=== PATIENT | female | born 1940 | race Caucasian/White ===

== ENCOUNTER 2020-09-14 21:21 | Emergency (ER) | payer OTHER ==
[~2020-09-14] VITALS: Ht 177.8 cm; Wt 61.7 kg
[2020-09-14] MEDS ORDERED: MULTIVITAMINS1 EAC7 PO (21:28)
[2020-09-14] MEDS ORDERED: CARDIZEM SR 60M60 MG PO (21:29)
[2020-09-14] MEDS ORDERED: WARFARIN SODIUM2 MG PO (21:29)
[2020-09-14] MEDS ORDERED: KEPPRA XR500 MG PO (21:29)
[2020-09-14] MEDS ORDERED: NAMENDA 5 MG TAB5 M1 PO (21:30)
[2020-09-14] MEDS ORDERED: FUROSEMIDE 20 M20 MG PO (21:31)
[2020-09-14 22:23] LABS: ABSOLUTE NEUTROPHILS 2.9 thou/uL (1.4-8.2); HEMATOCRIT 43.8 % (37.0-47.0); HEMOGLOBIN 14.7 gm/dL (12.0-15.0); LYMPHOCYTES 39.6 % (24.0-44.0); MCH 33.1 pg (26.0-34.0); MCHC 33.5 g/dL (28.0-37.0); MCV 98.8 fL (80.0-100.0); MONOCYTES 11.8 % (1.0-8.0); PLATELET COUNT 227 thou/uL (150-400); POLYS 43.6 % (36.0-66.0); RBC 4.43 mil/uL (4.20-5.00); RDW 12.5 % (10.5-14.5); WBC 6.7 thou/uL (4.0-11.0)
[2020-09-14 22:31] LABS: CALCIUM 9.8 mg/dL (8.5-10.1); CREATININE 1.1 mg/dL (0.6-1.0); POTASSIUM 4.4 mmol/L (3.5-5.1)
[2020-09-14 22:34] LABS: PROTIME 10.7 Seconds (9.3-11.4)
[2020-09-14 22:36] LABS: ALBUMIN 3.7 g/dL (3.4-5.0); TOTAL BILIRUBIN 0.3 mg/dL (0.2-1.0); TOTAL PROTEIN 7.8 g/dL (6.4-8.2)
[2020-09-15 01:00] VITALS: BP 128/64
== END 2020-09-15 01:00 | disposition home or self-care (01) ==
LOC: ER 21:21
PROVIDERS: Emergency Medicine
DX: S00.81XA Abrasion of other part of head, initial encounter (principal); M25.561 Pain in right knee; Z79.01 Long term (current) use of anticoagulants; Z79.899 Other long term (current) drug therapy; W19.XXXA Unspecified fall, initial encounter; Y93.89 Activity, other specified; Y92.89 Other specified places as the place of occurrence of the external cause; Y99.8 Other external cause status